=== PATIENT | male | born 1945 | race Caucasian/White ===

== ENCOUNTER 2021-04-10 16:11 | Inpatient (IN) | payer MEDICARE, MEDICAID ==
[2021-04-10 19:28] VITALS: BMI 27.4
[2021-04-10] MEDS ORDERED: Ondansetron ODT 4 MG TAB PO PRN (19:40)
[2021-04-10] MEDS ORDERED: hydrALAZINE 20 MG/ML VIAL SLOW IVP PRN (19:40)
[2021-04-10] MEDS ORDERED: Ondansetron PF 4 MG/2 ML Vial IVP PRN (19:40)
[2021-04-10] MEDS ORDERED: Acetaminophen 500 MG TAB PO PRN (19:40)
[2021-04-10] MEDS ORDERED: Vancomycin HCl 1.25 GM in Sodium Chloride 0.9% 250 ML 250 ML IVPB SCH (19:45)
[2021-04-10 20:15] LABS: #Basophils 0.1 thou/uL (0.0-0.2); #Eosinphils 0.3 thou/uL (0.0-0.7); #Lymphocytes 1.5 thou/uL (1.20-3.40); #Monocytes 0.8 thou/uL (0.11-0.59); #Neutrophils 5.3 thou/uL (1.40-6.50); %Basophils 0.7 % (0.0-1.0); %Eosinophils 3.2 % (0.0-10.0); %Lymphocytes 18.7 % (21.0-51.0); %Monocytes 9.7 % (0.0-10.0); %Neutrophils 67.7 % (42.0-75.0); Hemoglobin 13.6 g/dL (12.0-18.0); Mean Corpuscular HGB CONC 32.9 g/dL (32.0-36.0); Mean Platelet Volume 8.3 fL (7.4-10.4); Platelet Count 184 thou/uL (130-400); RBC Distribution Width 11.7 % (11.5-14.5); Red Blood Cell (RBC) Count 3.99 mill/uL (4.20-6.10); White Blood Cell (WBC) Count 7.9 thou/uL (4.8-10.8)
[2021-04-10] MEDS: Sodium Chloride 0.9% 1,000 ML IV SCH (20:19)
[2021-04-10 20:26] LABS: Anion Gap 14 mmol/L (10-20); BUN (Urea Nitrogen) 17 mg/dL (8.4-25.7); Calcium 9.2 mg/dL (7.8-10.44); Carbon Dioxide 24 mmol/L (23-31); Chloride 106 mmol/L (98-107); Glucose 99 mg/dL (83-110); Potassium 3.7 mmol/L (3.5-5.1); Sodium 140 mmol/L (136-145)
[2021-04-10] MEDS: Cefepime 2 GM in Sodium Chloride 0.9% 100 ML IVPB SCH (22:00)
[2021-04-10] MEDS: Famotidine 20 MG TAB PO SCH (22:00)
[2021-04-10] MEDS: VANCOMYCIN 1.25 GM/250 ML BAG 1.25 GM in Premix Bag 1 BAG IVPB SCH (22:59)
[2021-04-11 06:18] LABS: Hemoglobin 13.1 g/dL (12.0-18.0); Mean Corpuscular HGB CONC 32.6 g/dL (32.0-36.0); Mean Corpuscular Hemoglobin 33.7 pg (27.0-31.0); Mean Platelet Volume 9.2 fL (7.4-10.4); Platelet Count 175 thou/uL (130-400); RBC Distribution Width 11.6 % (11.5-14.5); Red Blood Cell (RBC) Count 3.88 mill/uL (4.20-6.10); White Blood Cell (WBC) Count 8.5 thou/uL (4.8-10.8)
[2021-04-11 06:50] LABS: Band 10 % (5-11); Eosinophils 4 % (0-10); Lymphocytes 12 % (21-51); MDiff Complete? YES; Monocytes 4 % (0-10); Neutrophil 70 % (42-75)
[2021-04-11] MEDS: Famotidine 20 MG TAB PO SCH ×3 (08:50→21:05)
[2021-04-11] MEDS: Cefepime 2 GM in Sodium Chloride 0.9% 100 ML IVPB SCH ×2 (09:31→21:04)
[2021-04-11] MEDS ORDERED: Hyoscyamine Sulfate SL 0.125 mg Tablet SL PRN (09:59)
[2021-04-11] MEDS ORDERED: Cyclobenzaprine 10 MG TAB PO PRN (09:59)
[2021-04-11] MEDS ORDERED: Senokot S 8.6-50 MG TAB PO PRN (09:59)
[2021-04-11] MEDS ORDERED: Mag-Al Plus 1200 MG/1200 MG/120 MG/30 ML UDCUP PO PRN (10:11)
[2021-04-11] MEDS: traMADol HCl 50 MG TAB PO SCH ×2 (12:02→18:02)
[2021-04-11] MEDS: VANCOMYCIN 1.25 GM/250 ML BAG 1.25 GM in Premix Bag 1 BAG IVPB SCH ×2 (12:03→23:12)
[2021-04-11] MEDS: Acetaminophen 325 MG TAB PO SCH ×3 (12:03→21:05)
[2021-04-11] MEDS ORDERED: Lidocaine 1% w/Epinephrine 1:100K 20 ML VIAL ONE (14:52)
[2021-04-11] MEDS ORDERED: Fentanyl 100 MCG/2 ML VIAL ONE (14:52)
[2021-04-11] MEDS ORDERED: Bupivacaine PF 0.5% 30 ML VIAL ONE (14:52)
[2021-04-11] MEDS ORDERED: PROPOFOL 200 MG/20 ML VIAL ONE (15:30)
[2021-04-11] MEDS ORDERED: Lidocaine 1% PF 5 ML VIAL ONE (15:30)
[2021-04-11] MEDS ORDERED: hydrALAZINE 20 MG/ML VIAL ONE (16:25)
[2021-04-11] MEDS: Sodium Chloride 0.9% 1,000 ML IV SCH ×2 (19:00→21:07)
[2021-04-11] MEDS: Carbidopa/Levodopa 25-100 mg Tablet PO SCH (21:05)
[2021-04-11] MEDS: cloNIDine 0.1 MG TAB PO SCH (21:05)
[2021-04-12] MEDS: traMADol HCl 50 MG TAB PO SCH ×5 (00:52→23:59)
[2021-04-12] MEDS: Acetaminophen 325 MG TAB PO SCH ×6 (02:16→20:11)
[2021-04-12] MEDS: Multivit, Therapeutic 1 TAB PO SCH ×2 (09:51→09:53)
[2021-04-12] MEDS: Amlodipine 5 MG TAB PO SCH (09:53)
[2021-04-12] MEDS: Famotidine 20 MG TAB PO SCH ×2 (09:53→20:11)
[2021-04-12] MEDS: Polyethylene Glycol 3350 17 GM Packet PO SCH (09:54)
[2021-04-12] MEDS: Tamsulosin HCl 0.4 MG CAP PO SCH (09:54)
[2021-04-12] MEDS: Carbidopa/Levodopa 25-100 mg Tablet PO SCH ×3 (09:55→20:10)
[2021-04-12] MEDS: Cefepime 2 GM in Sodium Chloride 0.9% 100 ML IVPB SCH ×2 (09:57→22:12)
[2021-04-12] MEDS: VANCOMYCIN 1.25 GM/250 ML BAG 1.25 GM in Premix Bag 1 BAG IVPB SCH ×2 (11:36→22:29)
[2021-04-12] MEDS: Sodium Chloride 0.9% 1,000 ML IV SCH (16:01)
[2021-04-12] MEDS: cloNIDine 0.1 MG TAB PO SCH (20:11)
[2021-04-13] MEDS: Acetaminophen 325 MG TAB PO SCH ×5 (02:38→16:46)
[2021-04-13] MEDS: Sodium Chloride 0.9% 1,000 ML IV SCH ×2 (06:17→15:28)
[2021-04-13] MEDS: traMADol HCl 50 MG TAB PO SCH ×3 (07:17→16:43)
[2021-04-13] MEDS: Carbidopa/Levodopa 25-100 mg Tablet PO SCH ×2 (08:41→16:46)
[2021-04-13] MEDS: Tamsulosin HCl 0.4 MG CAP PO SCH (08:42)
[2021-04-13] MEDS: Amlodipine 5 MG TAB PO SCH (08:43)
[2021-04-13] MEDS: Famotidine 20 MG TAB PO SCH (08:44)
[2021-04-13] MEDS: Polyethylene Glycol 3350 17 GM Packet PO SCH ×2 (08:45→08:47)
[2021-04-13] MEDS ORDERED: Multivit, Therapeutic 1 TAB PO SCH (09:00)
[2021-04-13] MEDS: Cefepime 2 GM in Sodium Chloride 0.9% 100 ML IVPB SCH (09:22)
[2021-04-13] MEDS: VANCOMYCIN 1.25 GM/250 ML BAG 1.25 GM in Premix Bag 1 BAG IVPB SCH (11:43)
[2021-04-13 11:50] VITALS: TEMP 97.7
[2021-04-13 15:27] VITALS: BP 144/80
== END 2021-04-13 17:01 | DRG 571 ==
LOC: EDSEX 17:36 → T4-A 17:36
PROVIDERS: ADMIT Family Medicine; ATTEND Internal Medicine
PROC: 0JBL0ZZ Excision of Right Upper Leg Subcutaneous Tissue and Fascia, Open Approach (ICD-10-PCS; principal; 2021-04-11)
PROC: 0J9L0ZZ Drainage of Right Upper Leg Subcutaneous Tissue and Fascia, Open Approach (ICD-10-PCS; 2021-04-11)
DX: L03.115 Cellulitis of right lower limb (principal); I96 Gangrene, not elsewhere classified; G20 Parkinson's disease; B18.2 Chronic viral hepatitis C; R26.9 Unspecified abnormalities of gait and mobility; N18.2 Chronic kidney disease, stage 2 (mild); K21.9 Gastro-esophageal reflux disease without esophagitis; L02.415 Cutaneous abscess of right lower limb; N40.0 Benign prostatic hyperplasia without lower urinary tract symptoms; I11.0 Hypertensive heart disease with heart failure; F17.210 Nicotine dependence, cigarettes, uncomplicated; G31.9 Degenerative disease of nervous system, unspecified; Z98.890 Other specified postprocedural states; Z79.899 Other long term (current) drug therapy
CPT/HCPCS: 36415; 70450; 80048; 85007; 85025; 85027; 87070; 87077; 87186; 87205; J0360; J0692; J2704; J3010; J3370; J3490; S0020

== ENCOUNTER 2022-09-01 10:11 | Emergency (ER) | payer MEDICARE, MEDICAID ==
[2022-09-01 10:56] LABS: #Eosinphils 0.1 thou/uL (0.0-0.7); #Lymphocytes 2.1 thou/uL (1.20-3.40); #Monocytes 0.8 thou/uL (0.11-0.59); #Neutrophils 6.6 thou/uL (1.40-6.50); %Basophils 0.3 % (0.0-1.0); %Eosinophils 0.9 % (0.0-10.0); %Lymphocytes 22.1 % (21.0-51.0); %Monocytes 8.2 % (0.0-10.0); %Neutrophils 68.5 % (42.0-75.0); Hemoglobin 11.1 g/dL (14.0-18.0); Mean Corpuscular HGB CONC 32.8 g/dL (32.0-36.0); Mean Corpuscular Hemoglobin 34.1 pg (27.0-31.0); Mean Platelet Volume 7.2 fL (7.4-10.4); Platelet Count 240 10x3/uL (130-400); RBC Distribution Width 11.2 % (11.5-14.5); Red Blood Cell (RBC) Count 3.27 mill/uL (4.70-6.10); White Blood Cell (WBC) Count 9.7 10x3/uL (4.8-10.8)
[2022-09-01 11:15] LABS: ALT (SGPT) 18 U/L (8-55); AST (SGOT) 15 U/L (5-34); Albumin 3.3 g/dL (3.4-4.8); Alkaline Phosphatase 52 U/L (40-110); Anion Gap 9 mmol/L (10-20); BUN (Urea Nitrogen) 20 mg/dL (8.4-25.7); Bilirubin, Total 0.4 mg/dL (0.2-1.2); Calc. Creatinine Clearance 0 mL/min (70-130); Calcium 8.5 mg/dL (7.8-10.44); Carbon Dioxide 28 mmol/L (23-31); Chloride 109 mmol/L (98-107); Estimated GFR 79; Globulin 2.7 g/dL (2.4-3.5); Glucose 91 mg/dL (83-110); Lipase 8 U/L (8-78); Magnesium 2.1 mg/dL (1.6-2.6); Sodium 142 mmol/L (136-145)
[2022-09-01 13:24] LABS: Bilirubin Negative (Negative); Blood, Urine Trace (Negative); Clarity Clear (Clear); Glucose, Urine (Dipstick) Normal (Negative); Ketone, Urine Negative (Negative); Leukocyte Negative Leu/uL (Negative); Nitrite Negative (Negative); Protein, Urine (Dipstick) 70 mg/dL (Neg-Trace); Specific Gravity, Urine 1.016 (1.002-1.036); Squamous Epithelial 0-3 HPF (0-3); Urobilinogen Normal mg/dL (Less than 2); WBC/HPF 0-3 HPF (0-3); pH, Urine 6.5 (5.0-9.0)
[2022-09-01 13:25] LABS: Bacteria/HPF Rare-Few HPF (None Seen)
[2022-09-01] MEDS ORDERED: Acetaminophen 325 MG TAB ONE (14:02)
== END 2022-09-01 21:27 | disposition home or self-care (01) ==
LOC: ERS 10:11
DX: R07.89 Other chest pain (principal); M25.512 Pain in left shoulder; I12.9 Hypertensive chronic kidney disease with stage 1 through stage 4 chronic kidney disease, or unspecified chronic kidney disease; N18.9 Chronic kidney disease, unspecified; D63.1 Anemia in chronic kidney disease; Z79.899 Other long term (current) drug therapy
CPT/HCPCS: 36415; 51701; 71045; 80053; 81003; 81015; 83605; 83690; 83735; 83880; 84484; 85025; 87040; 93005

== ENCOUNTER 2022-11-03 08:48 | Day surgery (SDC) | payer MEDICARE, OTHER ==
[2022-10-30 10:18] VITALS: BMI 21.4
[2022-11-03 08:48] LABS: #Eosinphils 0.3 thou/uL (0.0-0.7); #Lymphocytes 1.9 thou/uL (1.20-3.40); #Monocytes 0.6 thou/uL (0.11-0.59); %Basophils 0.7 % (0.0-1.0); %Eosinophils 4.2 % (0.0-10.0); %Lymphocytes 28.1 % (21.0-51.0); %Neutrophils 57.9 % (42.0-75.0); Hemoglobin 12.4 g/dL (14.0-18.0); Mean Corpuscular HGB CONC 32.9 g/dL (32.0-36.0); Mean Corpuscular Hemoglobin 34.3 pg (27.0-31.0); Mean Platelet Volume 7.9 fL (7.4-10.4); Platelet Count 225 10x3/uL (130-400); RBC Distribution Width 11.3 % (11.5-14.5); Red Blood Cell (RBC) Count 3.62 mill/uL (4.70-6.10); White Blood Cell (WBC) Count 6.9 10x3/uL (4.8-10.8)
[2022-11-03 09:00] LABS: Prothrombin Time 13.9 sec (12.0-14.7)
[2022-11-03 09:01] LABS: PTT 27.3 sec (22.9-36.1)
[2022-11-03] MEDS ORDERED: Sodium Bicarbonate 2.5 MEQ/5 ML VIAL ONE (10:27)
[2022-11-03] MEDS ORDERED: Fentanyl 100 MCG/2 ML VIAL ONE (10:28)
[2022-11-03 12:15] VITALS: BP 157/77; TEMP 97.7
== END 2022-11-03 13:30 ==
LOC: CT 08:48
PROVIDERS: ATTEND Urology
PROC: 0T9B30Z Drainage of Bladder with Drainage Device, Percutaneous Approach (ICD-10-PCS; principal; 2022-11-03)
DX: N39.41 Urge incontinence (principal); R33.9 Retention of urine, unspecified; G47.33 Obstructive sleep apnea (adult) (pediatric); G20 Parkinson's disease; I12.9 Hypertensive chronic kidney disease with stage 1 through stage 4 chronic kidney disease, or unspecified chronic kidney disease; N18.9 Chronic kidney disease, unspecified; F17.200 Nicotine dependence, unspecified, uncomplicated; K21.9 Gastro-esophageal reflux disease without esophagitis; K22.70 Barrett's esophagus without dysplasia
CPT/HCPCS: 51102; 77002; 85025; 85610; 85730; C2627; J1956; J3010